=== PATIENT | female | born 1940 | race Caucasian/White ===

== ENCOUNTER 2023-07-30 17:49 | Observation (INO) | payer MEDICARE, SELFPAY ==
[2023-07-30] VITALS (7 sets, daily range): BP systolic 113–144; BP diastolic 55–73; PULSE 76–87; BMI 24.5
--- NOTE | 2023-07-30 14:09 | ED.GENMED ---
History of Present Illness
General
Chief Complaint: Dizziness
Source: patient
Exam Limitations: none
Time Seen by Provider: 07/30/23 14:05
Nursing documentation reviewed up to this point in time: agreed with
Travel History
Have you had any contact with someone who has COVID-19?: No
Do you have any symptoms of coronavirus? Fever > 100 degrees, chills, cough, shortness of breath, sore throat, loss of taste or smell, muscle aches, or headache?: No
History of Present Illness
History of Present Illness:
83-year-old female presents to the ER for evaluation. She reports she was sent by her neurologist Dr. Larry. She is followed by neurology for benign essential tremors. She however did not feel well this morning. About an hour after awakening
she felt that her balance was off and she felt lightheaded , dizzy and felt a dry mouth. She denies the sensation that the room is spinning. She reported that she does not feel that this is vertigo. Denies any recent trauma. She denies any
headache nausea vomiting. She is not on blood thinners. No prior history of stroke. Yesterday she felt very tired but now she feels worse today. She reports she does not feel herself.
I spoke to Dr. Larry who did evaluate patient today and was concerned for posterior circulation stroke I did send patient to the ER for evaluation. He reports patient's balance was slightly off. Patient however arrives awake alert and does feel
improved than she did this morning though not quite herself.
Past History
Past History
ED Past Medical History: Other (Osteoarthritis, psoriasis, benign essential tremor)
ED Past Surgical History: Appendectomy and Gynecological (MARY/BSO)
Social History
Personal:
Review of Systems
Review of Systems
Allergies reviewed?: Yes
All Other Systems: ROS reviewed and negative except as documented in HPI and ROS
Constitutional: Reports no symptoms
Respiratory: Reports no symptoms
Cardiac: Reports no symptoms
ABD/GI: Reports no symptoms
Skin: Reports no symptoms
Neurological: Reports dizzy; Denies headache, weakness or numbness
Psychiatric: Reports no symptoms
Phy Exam
General Physical Exam
General Presentation: no apparent distress
General age: appears stated age
General Skin: warm and dry
General Habitus: normal
General Mental: alert
General Hydration: dry mucous membranes
Cardiovascular Exam
Cardiovascular Exam: regular rate/rhythm, no murmur and normal peripheral pulses
Pulmonary Exam
Pulmonary Exam: lungs clear
Gastrointestinal Exam
Gastrointestinal Exam: normal bowel sounds and soft
Neurological Exam
Neurological Exam: alert, oriented x3, no motor deficits and no sensory deficits
Meredith Coma Scale
Eye Opening: Spontaneous
Verbal Response: Oriented
Motor Response: Obeys Commands
GCS Total Score: 15
Cerebellar
Cerebellar Function: normal finger to nose
Musculoskeletal Exam
Musculoskeletal Exam: full ROM
Skin Exam
Skin Exam: normal color and warm/dry
Psychiatric Exam
Psychiatric Exam: normal mood/affect
Course
Orders/Labs/Results
Orders:
Orders
07/30/23 11:34
EKG [Electrocardiogram (*1)] Urgent
Reason for Study: Vertigo / Dizzy
07/30/23 11:35
EKG- Treatment ONCE
07/30/23 14:18
IV Insert/Care/Rem.- Treatment PRN
0.9% Sodium Chloride 1000 ml [Nss] 1,000 ml IV BOLUS
07/30/23 14:19
Electrocardiogram (*1) Stat
Reason for Study: Other
Other Reason for Exam: chest pain
Cardiac Monitoring- Treatment ONCE
EKG- Treatment ONCE
Orthostatic VS- Treatment ONCE
07/30/23 14:23
Complete Blood Count/With Diff Urgent
Comprehensive Metabolic Panel Urgent
07/30/23 14:31
CT Head W/o Iv Contrast Urgent
Comment:
Reason For Exam: balance issues
Abnormal Lab Results
07/30/23
14:23
MCHC 32.7 L g/dL
(33.0-37.0)
Absolute Lymphs (auto) 1.1 L 10^3/uL
(1.2-3.4)
Lymphocytes % 15.7 L %
(20.5-51.1)
Sodium 134 L mmol/L
(135-145)
BUN 25 H mg/dl
(7-17)
Total Protein 6.1 L g/dl
(6.3-8.2)
07/30/23 14:23
07/30/23 14:23
Vital Signs
Initial and Last Documented VS:
Initial Vital Signs
Temp Pulse Resp BP Pulse Ox
97.7 F 86 18 141/69 98
07/30/23 11:32 07/30/23 11:32 07/30/23 11:32 07/30/23 11:32 07/30/23 11:32
Last Documented Vital Signs
Temp Pulse Resp BP Pulse Ox
97.7 F 72 10 113/55 98
07/30/23 11:32 07/30/23 14:40 07/30/23 14:40 07/30/23 14:40 07/30/23 11:32
MDM/Problems Addressed
Differential Diagnosis Includes:
Not limited to stroke, dehydration, electrolyte
MDM/Problems Addressed:
Patient is an 83-year-old female with benign essential tremors who woke up this morning and felt off. She describes feeling that her gait and balance was off she felt dizzy. She also was very thirsty. She was seen by her neurologist Dr. Archibald
Kendy(this was a regular schedule appointment for her essential tremors) and he recommended patient come to the ER. I did speak with him over the phone, he was concerned about possible posterior circulation stroke. Patient was just amatory with a
steady gait here in the ER no headache no blood thinners. CT head and negative. Patient with normal sodium potassium, normal kidney function no recent illness normal white count afebrile stable hemoglobin.
Patient is mildly dehydrated with a BUN of 25 given fluids. will admit for stroke work up
*Radiology
Radiology exam reviewed: radiology read reviewed
*Pulse Oximetry
Patient hypoxic: no
*EKG
Interpreted by ED Provider?: Yes
Comparison EKG: no changes
Heart Rate: 74
Rate: normal
Rhythm: sinus
QRS Pattern: right bundle branch block
*Critical Care Note
Total Time (30-74mins, 75-104mins- exclusive of procedures): Not Applicable
Patient Management
Discussion with other providers: Drug Enforcement Agent (neuro DR Larry )
ED Attending Note
-
Portions of this chart may have been created with voice recognition software.� Occasional wrong word or��sound alike� substitutions may have occurred due to the inherent limitations of voice recognition software.
Discharge Plan
Departure
Patient Disposition: Admit
Date of Disposition: 07/30/23
Time of Disposition: 16:41
Admit to doctor: hospitalist
Presentation/result/management discussed w/ accepting MD/DO: Hospitalist
Patient with high blood pressure during this ER visit?: Yes
Condition: Fair
Covid-19: Not Applicable
Discharge Problem:
Dizziness, Dehydration
Prescriptions:
No Action
alprazolam 0.5 MG tablet
1 mg PO Q12H
estradiol 1 MG tablet
1 mg PO DAILY
Gabapentin
600 mg PO HS
mupirocin 1 APPLIC ointment
1 applic intranasal BID Qty: 1 0RF
Patient Comments:
started 01/10/19 as ordered last dose 01/13/19 0710
sennosides [senna] 1 TABLET tablet
2 tab PO BID 0RF
acetaminophen 325 MG tablet
650 mg PO QID 0RF
aspirin 325 MG tablet,delayed release (DR/EC)
325 mg PO DAILY 0RF
docusate sodium 100 MG capsule
100 mg PO BID 0RF
oxycodone 5 MG tablet
5 mg PO Q4HPRN PRN (Reason: mild pain) 0RF
oxycodone 10 MG tablet
10 mg PO Q4HPRN PRN (Reason: moderate pain) 0RF
celecoxib 200 MG capsule
200 mg PO BID
valacyclovir [Valtrex] 1,000 MG tablet
1,000 mg PO TID Qty: 20 0RF
prednisone 50 MG tablet
50 mg PO DAILY Qty: 7 0RF
Referrals:
Marvin Mays, DO [Family Provider] -
Interventions
Interventions:
*Risk Screen - Suicide Last Done: 07/30/23 11:32
*General Assessment Last Done: 07/30/23 14:11
*Neglect/Abuse Screening Last Done: 07/30/23 11:32
ED- Fall Risk Assessment Last Done: 07/30/23 14:11
*ED COVID-19 Vaccine History Last Done: 07/30/23 11:32
ED- Neurological Assessment Last Done: 07/30/23 14:11
ED- Cardiac Assessment Last Done: 07/30/23 14:11
ED Swallowing Screen Last Done: 07/30/23 14:11
Discharge Date and Time
Print Language: VIETNAMESE
[2023-07-30] MEDS: NSS 1000 IV (14:22)
[2023-07-30 14:41] LABS: % Basophils 0.6 % (0-2); % Eosinophils 1.5 % (0-6); % Immature Granulocytes 0.1 % (0-0.5); % Lymphocytes 15.7 % (20.5-51.1); % Monocytes 8.5 % (1.7-9.3); % Neutrophils 73.6 % (42.2-75.2); Absolute Eosinophils 0.1 10^3/uL (0-0.7); Absolute Lymphocytes 1.1 10^3/uL (1.2-3.4); Absolute Monocytes 0.6 10^3/uL (0.1-0.6); Hematocrit 38.5 % (37.0-47.0); Hemoglobin 12.6 g/dL (12.0-16.0); Mean Corp Hgb Conc. 32.7 g/dL (33.0-37.0); Mean Corpuscular Hgb 29.8 pg (27.0-31.0); Mean Platelet Volume 10.1 fL (7.4-10.4); Nucleated Red Blood Cells % 0 %; Platelet Count 206 10^3/uL (130-400); Red Blood Cell Count 4.23 10^6/uL (4.20-5.40); Red Cell Dist. Width 12.5 % (11.5-14.5); White Blood Cell Count 6.8 10^3/uL (4.8-10.8)
[2023-07-30 14:50] LABS: ALT (SGPT) 16 U/L (0-35); AST (SGOT) 24 U/L (14-36); Albumin 4.1 g/dl (3.5-5.0); Alkaline Phosphatase 81 U/L (38-126); Blood Urea Nitrogen 25 mg/dl (7-17); Calcium 9.4 mg/dl (8.4-10.2); Carbon Dioxide 28 mmol/L (22-30); Chloride 103 mmol/L (98-107); Glucose 82 mg/dl (70-99); Potassium 4.4 mmol/L (3.5-5.1); Sodium 134 mmol/L (135-145); Total Bilirubin 0.3 mg/dl (0.2-1.3); Total Protein 6.1 g/dl (6.3-8.2); eGFR > 60.00
--- NOTE | 2023-07-30 17:06 | HPS.HSE ---
Family Physician
-
Family Physician: Marvin Mays
Chief Complaint
-
Problem with balance
History of Present Illness
83-year-old female with past medical history of hyperlipidemia, neuropathy, left TKR, anxiety, essential tremor was sent in from neurology office after patient had new onset of dizziness and balance problem in the morning. Patient denies of having
previous history of TIA/CVA/vertigo. In the morning patient woke up and balance was off. Denies of having any associated focal arm or leg weakness/sensation change/facial droop. Patient does feel her voice is different than normal. Patient
follows up with Dr. Gamble/neurology for essential tremor for few years now.
Denies of any other cardiopulmonary/GI/ complaints.
Medical History
Past Medical History
Past Medical History: Reports Other
Additional Past Medical History:
hyperlipidemia, neuropathy, left TKR, anxiety, essential tremor
Past Surgical History: Reports Other
Social History
Tobacco: Non-smoker
Alcohol: Occasional
Drug: None
Personal:
Living: With Family
Family History
Family History: Not pertinent
Allergies / Home Medications
Allergies reflects when Allergies were last updated in [facility].
Home Medications with original date entered in [facility]
Allergy/Medication List:
Allergies
Allergy/AdvReac Type Severity Reaction Status Date / Time
Penicillins Allergy rash/burnin Verified 07/30/23 11:31
g
Home Medications
alprazolam 0.25 mg tablet (Xanax) 0.25 mg PO BIDPRN PRN anxiety 07/30/23
atorvastatin 20 mg tablet (Lipitor) 20 mg PO DAILY 07/30/23
bimatoprost 0.01 % eye drops (Lumigan) 1 drp BOTH EYES HS 07/30/23
cyclosporine 0.05 % eye drops in a dropperette (Restasis) 1 drp BOTH EYES Q12H 07/30/23
estradiol 0.01% (0.1 mg/gram) vaginal cream (Estrace) 1 appful vaginal Q48H 07/30/23
gabapentin 300 mg capsule 600 mg PO NOON 07/30/23
gabapentin 300 mg capsule 900 mg PO BID@0800,2000 07/30/23
Review of Systems
-
A 12 point ROS was completed and negative except as noted: Yes
Physical Exam
Vital Signs
Vital Signs
Temp Pulse Resp BP Pulse Ox
97.7 F 74 14 116/57 98
07/30/23 11:32 07/30/23 16:30 07/30/23 16:30 07/30/23 14:50 07/30/23 11:32
Physical Exam
General: No Apparent Distress
HEENT: Atraumatic; No Oxygen
Respiratory: Clear
Cardiac: S1/S2 and Regular Rhythm; No Murmur or Rub
GI: Soft, Non Tender, Non Distended and Normal Bowel Sounds
Rectal: Deferred by Provider
Musculoskeletal: No Clubbing, No Cyanosis and No Edema
Skin: No Rash
Neuro: Awake, Alert, Oriented and Nonfocal/grossly intact
Laboratory Results
-
07/30/23 14:23
07/30/23 14:23
Laboratory Results
Total Bilirubin 0.3 mg/dl (0.2-1.3) 07/30/23 14:23
AST 24 U/L (14-36) 07/30/23 14:23
ALT 16 U/L (0-35) 07/30/23 14:23
Alkaline Phosphatase 81 U/L (38-126) 07/30/23 14:23
Data Reviewed
-
CT Scan: Image Personally Visualized and interpreted, Report Reviewed by me, Discussed with Patient and Discussed with Family
Lab Data: Labs Reviewed by me, Discussed with Patient and Discussed with Family
Impression/Plan
-
1. Acute ataxia
r/o CVA
-Acute onset symptoms of balance problem. No associated diplopia/nystagmus/focal neurological deficit
-Denies history of vertigo
-Sent from neurology office for further evaluation for possible posterior circulation stroke
-CT head without any acute abnormality
-MRI brain without contrast and MRA neck ordered
-PT OT/speech therapy evaluation ordered
-Admit to telemetry floor under observation
-Check lipid profile/A1c
-Started on aspirin 81 mg daily. Continue atorvastatin 20 mg daily
-Will involve neurology if true CVA.
2. Neuropathy
-Continue home dose of gabapentin
3. Hyperlipidemia
-Check lipid profile, continue Lipitor 20 mg daily
4. Anxiety
-Continue Xanax as needed
-Providing melatonin/Benadryl for sleeping aid
DVT prophylaxis -SCD
Full code
Total time spent : 76 mins
I personally saw and examined the patient.
I have reviewed all diagnostic interpretations and treatment plans as written.
Time includes patient management by me, time spent at the patients bedside, time to review lab and imaging results, discussing patient care, documentation in the medical record, and time spent with the family or caregiver and discussing care plan
with RN/Consultants.
[2023-07-30] MEDS: LOW STRENGTH ASPIRIN 81 MG PO (19:55)
[2023-07-30] MEDS: XANAX 0.25 MG PO (21:09)
[2023-07-30] MEDS: RESTASIS 0.05% OPHTHALMIC EMULSION 1 DROPS BOTH EYES (21:15)
[2023-07-30] MEDS: NEURONTIN 300 MG PO (21:21)
[2023-07-31 03:28] VITALS: BP 102/52
--- NOTE | 2023-07-31 04:27 | W.PN.UPDATE ---
Update Note
Progress Note Update
Recommended by the pharmacist to adjust the current dose of gabapentin of 900mg po bid and 600mg po noon to 300mg po tid. Current CrCl = 38 and Max recommended dose is 900mg/day. Dose changed as recommended.
[2023-07-31 05:46] LABS: Hematocrit 35.2 % (37.0-47.0); Hemoglobin 11.9 g/dL (12.0-16.0); Mean Corp Hgb Conc. 33.8 g/dL (33.0-37.0); Mean Corpuscular Hgb 29.8 pg (27.0-31.0); Mean Corpuscular Volume 88.2 fL (81.0-99.0); Platelet Count 187 10^3/uL (130-400); Red Blood Cell Count 3.99 10^6/uL (4.20-5.40); Red Cell Dist. Width 12.4 % (11.5-14.5)
[2023-07-31 06:14] LABS: Blood Urea Nitrogen 26 mg/dl (7-17); Carbon Dioxide 26 mmol/L (22-30); Chloride 107 mmol/L (98-107); Estimated Creatinine Clearance 38 ml/min; Glucose 91 mg/dl (70-99); HDL Cholesterol 82 mg/dl; LDL Cholesterol, Calculated 55 mg/dl; Potassium 4.2 mmol/L (3.5-5.1); Sodium 137 mmol/L (135-145); Total Cholesterol 152 mg/dl (50-199); Triglyceride 78 mg/dl (10-149); Very Low Density Lipoprotein 15 mg/dl (0-30); eGFR > 60.00
[2023-07-31 07:30] VITALS: BP 150/72
[2023-07-31 08:42] LABS: Glycohemoglobin (HgbA1c) 5.3 % (4.0-5.6)
[2023-07-31 09:00] VITALS: BP 142/71; PULSE 85; O2SAT 100
--- NOTE | 2023-07-31 09:09 | PTOTSP ---
ST Acute Care Evaluation
Pt presents with oropharyngeal parameters that are safe for PO intake of all solid and liquid consistencies. No overt s/s of penetration or aspiration observed at bedside. Pt denies any recent difficulties with attention, memory, comprehension,
verbal expression, or speech. Further cognitive linguistic assessment is not warranted at this time.
No skilled BLACK PULLER services deemed necessary at this time. BLACK PULLER to sign off. Please re-consult if needed.
[2023-07-31] MEDS: LOW STRENGTH ASPIRIN 81 MG PO (09:32)
[2023-07-31] MEDS: LIPITOR 20 MG PO (09:32)
[2023-07-31] MEDS: NEURONTIN 300 MG PO ×2 (09:33→12:31)
[2023-07-31] MEDS: RESTASIS 0.05% OPHTHALMIC EMULSION BOTH EYES ×2 (09:34→09:37)
[2023-07-31 10:06] VITALS: BP 142/71; PULSE 83; O2SAT 99
[2023-07-31 11:00] VITALS: BP 150/76
--- NOTE | 2023-07-31 13:56 | W.PN.HOSP.TC ---
Today's Communication/Plan
-
d/c home
Assessment / Plan
Assessment / Plan
1. Acute ataxia - ruled out CVA
-Acute onset symptoms of balance problem. No associated diplopia/nystagmus/focal neurological deficit
-Denies history of vertigo
-Sent from neurology office for further evaluation for possible posterior circulation stroke
-CT head without any acute abnormality
-MRI brain without contrast and MRA neck negative.
-PT OT clear,
-Admit to telemetry floor under observation
-Hbga1c 5.3. LDL 55 TC 152 HDL 82
-Possible TIA episode, continue f/u with neurology outpt basis.
2. Neuropathy
-Continue home dose of gabapentin
3. Hyperlipidemia
-Check lipid profile, continue Lipitor 20 mg daily
4. Anxiety
-Continue Xanax as needed
-Providing melatonin/Benadryl for sleeping aid
DVT prophylaxis -SCD
Full code
More than 30 minutes spent in discharge including
Final examination of the patient
Summarizing hospital stay
Instructions for continuing care to all relevant caregivers
Preparation of discharge records, prescriptions, and referral forms
Total time spent (in minutes): 35 mins
Anticipated Discharge: Today
Subjective/Interval History
-
Date of Service: July 31, 2023
no new problems
Objective Data
-
Labs:
Laboratory Results
07/31/23
05:11
WBC 6.0
Hgb 11.9 L
Hct 35.2 L
Plt Count 187
Sodium 137
Potassium 4.2
Chloride 107
Carbon Dioxide 26
BUN 26 H
Creatinine 0.8
Glucose 91
Calcium 9.0
Vital Signs:
Vital Signs
Temp Pulse Resp BP Pulse Ox
97.8 F 80 18 150/76 95
07/31/23 11:00 07/31/23 11:00 07/31/23 11:00 07/31/23 11:00 07/31/23 11:00
I&O
07/30/23 07/31/23 08/01/23
06:59 06:59 06:59
Intake Total 120 / 120
Balance 120 / 120
Review of Systems
-
Respiratory: Reports No Symptoms
Cardiac: Reports No Symptoms
Abdomen/GI: Reports No Symptoms
Physical Exam
-
General: No Apparent Distress and Comfortable
HEENT: Negative Oxygen
Respiratory: Clear to Auscultation
Cardiac: Regular Rhythm and S1/S2; Negative Murmur or Rub
GI: Soft, Nontender, Nondistended and Normal Bowel Sounds
Musculoskeletal: No Edema
Neuro: Awake, Alert, Oriented, No Motor Deficits and Nonfocal/Grossly Intact
Psych: Calm
--- NOTE | 2023-07-31 14:49 | CM ---
Alert awake oriented patient who lives with her Harshal in a 2 story home with 3 step to enter and 12 steps to bed room . She is independent in driving and all activities of daily living.Offered VN she declined. No adaptive devices.
will drive her home.
No SNF/VN hx
Pharmacy [facility]
PCP Dr Mays
PLAN Home no needs
--- NOTE | 2023-08-01 07:30 | W.DCSUMMARY ---
Discharge Summary
Discharge Data
Date of Admission: 07/30/23
Date of Discharge: 07/31/23
-
Pending Results: No
Hospital Course
Discharging Physician : Dr Jorge Verdin
Disposition : To home
Primary care physician : Dr Marvin Mays
Principal Discharge diagnosis :
Acute ataxia
Chronic Discharge diagnosis :
Hyperlipidemia
Neuropathy
Anxiety
Hospital Course :
Patient is a 83-year-old female with above-mentioned past medical history came to ER with new onset of dizziness and balance problem in the morning. Patient coincidently had a follow-up appointment with primary neurologist for long-term essential
tremors and neurologist had concern of patient having a new posterior cerebral circulation stroke and was sent to ER for further evaluation. CT head did not show any acute abnormality. A follow-up MRI brain and MRA neck was done which did not show
any acute abnormality either. Patient nondiabetic and lipid profile showing controlled hyperlipidemia. Patient was discharged home with continue all of home medication. Unable to completely differentiate if it was a TIA episode versus mild
vertigo. Patient will benefit with continual follow-up with neurology if have further similar episodes.
Important imaging findings :
None
Procedure findings :
None
Discharge Plan
-
Patient Disposition: Home (Routine Discharge)
Discharge Diagnosis/Procedures: Balance problems
Condition: Fair
Diet: Low Cholesterol and Low Sodium
Activity: As tolerated
Driving Restrictions: No driving
Bathing Restrictions: OK to Shower
Referrals:
Marvin Mays, DO [Family Provider] - in one week
Prescriptions:
Continued
atorvastatin [Lipitor] 20 mg Tablet
20 mg PO DAILY
alprazolam [Xanax] 0.25 mg Tablet
0.25 mg PO BIDPRN PRN (Reason: anxiety)
gabapentin 300 mg Capsule
900 mg PO BID@0800,2000
gabapentin 300 mg Capsule
600 mg PO NOON
estradiol [Estrace] 0.01 % (0.1 mg/gram) Cream
1 appful VAGINAL Q48H
cyclosporine [Restasis] 0.05 % Dropperette
1 drp BOTH EYES Q12H
Lumigan 0.01 % Drops
1 drp BOTH EYES HS
Discharge Orders:
Discharge Patient (As Directed); Ordered 07/31/23
Ordered By: Jorge Verdin
Discharge Date and Time
Discharge Date/Time: 07/31/23 14:48
Print Language: ALGERIAN
== END 2023-07-31 14:48 | disposition home or self-care (01) ==
LOC: 3 WEST ACU 17:49
PROVIDERS: Nurse Practitioner; ADMITTING PHYSICIAN Hospitalist; EMERGENCY PHYSICIAN Emergency Medicine; FAMILY PHYSICIAN Family Medicine
DX: R27.0 Ataxia, unspecified (principal); E86.0 Dehydration; E78.5 Hyperlipidemia, unspecified; G62.9 Polyneuropathy, unspecified; F41.9 Anxiety disorder, unspecified; G25.0 Essential tremor; M19.90 Unspecified osteoarthritis, unspecified site; I45.10 Unspecified right bundle-branch block; Z79.899 Other long term (current) drug therapy; Z96.652 Presence of left artificial knee joint
CPT/HCPCS: 70450; 70548; 70551; 80048; 80053; 80061; 83036; 85025; 85027; 92610; 93005; 96360; 97163; 97165; 99285; A9585; G0378

== ENCOUNTER → 2024-11-19 09:28 | Outpatient (REF) | payer MEDICARE, SELFPAY | LOC: WDC 09:28 | PROVIDERS: ATTENDING PHYSICIAN Nurse Practitioner Adult Health; FAMILY PHYSICIAN Family Medicine | DX: N64.4 Mastodynia (principal) | CPT/HCPCS: 76642; 77062; 77066 ==

== ENCOUNTER → 2024-11-25 08:16 | Outpatient (REF) | payer MEDICARE, SELFPAY | LOC: RAD 08:16 | PROVIDERS: ATTENDING PHYSICIAN Student in an Organized Health Care Education/Training Program; FAMILY PHYSICIAN Family Medicine | DX: R22.42 Localized swelling, mass and lump, left lower limb (principal) | CPT/HCPCS: 76882 ==

== ENCOUNTER 2025-01-08 03:04 | Observation (INO) | payer MEDICARE, SELFPAY ==
[2025-01-07 22:07] VITALS: BP 150/81
[2025-01-07 22:47] LABS: Hematocrit 40.1 % (37.0-47.0); Hemoglobin 13.7 g/dL (12.0-16.0); Mean Corp Hgb Conc. 34.2 g/dL (33.0-37.0); Mean Corpuscular Volume 84.4 fL (81.0-99.0); Nucleated Red Blood Cells % 0 %; Platelet Count 246 10^3/uL (130-400); Red Cell Dist. Width 12.0 % (11.5-14.5)
[2025-01-07 23:06] LABS: ALT (SGPT) 13 U/L (0-35); AST (SGOT) 22 U/L (14-36); Albumin 4.5 g/dl (3.5-5.0); Alkaline Phosphatase 81 U/L (38-126); Blood Urea Nitrogen 26 mg/dl (7-17); Calcium 10.0 mg/dl (8.4-10.2); Carbon Dioxide 24 mmol/L (22-30); Chloride 107 mmol/L (98-107); Glucose 102 mg/dl (70-99); Potassium 4.0 mmol/L (3.5-5.1); Sodium 139 mmol/L (135-145); Total Protein 6.6 g/dl (6.3-8.2); eGFR > 60.00
[2025-01-07 23:57] VITALS: BP 138/95
[2025-01-08] VITALS (10 sets, daily range): BP systolic 114–153; BP diastolic 56–88; BMI 23.2; BMI 23.3
--- NOTE | 2025-01-08 00:45 | ED.GENMED ---
History of Present Illness
General
Chief Complaint: Gait Dysfunction
Source: patient and spouse
Exam Limitations: clinical condition
Time Seen by Provider: 01/07/25 23:33
Nursing documentation reviewed up to this point in time: agreed with
History of Present Illness
History of Present Illness:
84-year-old female history of a resting tremor no history of seizures nondrinker non-smoker takes gabapentin and a statin woke up today plan was to go on a trip with her spouse who is accompanying her developed some uncontrollable upper extremity
movements, she never had before, she is unable to control the movements, no headache, she is hard of hearing, spouse states she does not appear to be confused, no fevers no trauma, nondrinker non-smoker
Past History
Past History
ED Past Medical History: Other (Osteoarthritis, psoriasis, benign essential tremor)
ED Past Surgical History: Appendectomy and Gynecological (MARY/BSO)
Social History
Personal:
Phy Exam
Physical Exam
Physical Exam:
Physical Exam
General: Hard of hearing elderly female intermittent only moving her arms uncontrollably
Neck: No jaundice no tongue
Heart: s1/s2 regular rate and rhythm, no murmur. equal radial pulses.
Lungs: no acute respiratory distress. clear bilaterally
Abdomen: Nontender
Neuro: alert and oriented. no focal neurological deficits
Skin: no rash
Psychiatric: well kept. interactive and cooperative
Extremities: no edema.
Course
Orders/Labs/Results
Orders:
Orders
01/07/25 22:27
CBC/With Diff [Complete Blood Count/With Diff] Urgent
CMP [Comprehensive Metabolic Panel] Urgent
01/08/25 00:[address] [CT Head W/o Iv Contrast] Urgent
Comment:
Reason For Exam: tremors
01/08/25 00:39
diazePAM [Valium Injection] 5 mg IV NOW STA
01/08/25 02:00
Straight cath- Treatment ONCE
Urinalysis Reflex To Culture Urgent
Date Specimen was Collected: 01/08/25
Time Specimen was Collected: 02:18
01/08/25 02:15
Add On- LAB Stat
Tests Added?: ammonia level
01/08/25 02:18
Ammonia Urgent
Comment: CANNOT BE ADDED
01/08/25 02:21
NEUROLOGY CONSULT Routine
Consulting Provider: Radha Whitley
Was physician already notified: Yes
Abnormal Lab Results
01/07/25
22:27
Absolute Monos (auto) 0.8 H 10^3/uL
(0.1-0.6)
Monocytes % 10.2 H %
(1.7-9.3)
BUN 26 H mg/dl
(7-17)
Glucose 102 H mg/dl
(70-99)
01/07/25 22:27
01/07/25 22:27
Vital Signs
Initial and Last Documented VS:
Initial Vital Signs
Temp Pulse Resp BP Pulse Ox
98.4 F 96 22 150/81 98
01/07/25 22:07 01/07/25 22:07 01/07/25 22:07 01/07/25 22:07 01/07/25 22:07
Last Documented Vital Signs
Temp Pulse Resp BP Pulse Ox
98.4 F 95 18 120/60 98
01/07/25 22:07 01/08/25 01:03 01/08/25 01:03 01/08/25 01:03 01/08/25 01:22
MDM/Problems Addressed
Differential Diagnosis Includes:
Seizure stroke psychosomatic medication effect
MDM/Problems Addressed:
Uncontrollable upper extremity movements
Chronic conditions affecting care:
Resting tremor
Acute Exacerbation and/or Progression of Chronic Illness:
Tremor
*Pulse Oximetry
SaO2: 99
Oxygen Mode of Delivery: Room air
Patient hypoxic: no
*Critical Care Note
Total Time (30-74mins, 75-104mins- exclusive of procedures): 22
Update Note
Update Note:
1:15 AM only short burst of 3% seizure activity on cerebella, activities stopped after 5 mg of Valium will send for CT
Reviewed with neurology recommend checking ammonia level suspect it could be metabolic or toxic myoclonus
Patient does take gabapentin
ED Attending Note
-
Portions of this chart may have been created with voice recognition software.� Occasional wrong word or��sound alike� substitutions may have occurred due to the inherent limitations of voice recognition software.
Discharge Plan
Departure
Patient Disposition: Admit
Date of Disposition: 01/08/25
Time of Disposition: 02:22
Admit to: Telemetry
Presentation/result/management discussed w/ accepting MD/DO: Hospitalist
Patient with high blood pressure during this ER visit?: No
Condition: Fair
Discharge Problem:
TONIC MYOCLONUS
Prescriptions:
No Action
atorvastatin [Lipitor] 20 mg Tablet
20 mg PO DAILY
alprazolam [Xanax] 0.25 mg Tablet
0.25 mg PO BIDPRN PRN (Reason: anxiety)
gabapentin 300 mg Capsule
900 mg PO BID@0800,2000
gabapentin 300 mg Capsule
600 mg PO NOON
estradiol [Estrace] 0.01 % (0.1 mg/gram) Cream
1 appful VAGINAL Q48H
cyclosporine [Restasis] 0.05 % Dropperette
1 drp BOTH EYES Q12H
Lumigan 0.01 % Drops
1 drp BOTH EYES HS
Referrals:
Bindu Marie DO [Family Provider, Family Practice]
Interventions
Interventions:
*Risk Screen - Suicide Last Done: 01/07/25 22:07
*General Assessment Last Done: 01/07/25 22:07
*Neglect/Abuse Screening Last Done: 01/07/25 22:07
*ED- Fall Risk Assessment Last Done: 01/08/25 00:08
*ED COVID-19 Vaccine History Last Done: 01/08/25 00:08
ED- Neurological Assessment Last Done: 01/08/25 00:08
ED-Musculoskeletal Assessment Last Done: 01/08/25 00:08
ED Swallowing Screen Last Done: 01/08/25 00:23
Discharge Date and Time
Print Language: BULGARIAN
[2025-01-08] MEDS: VALIUM INJECTION 5 MG IV ×3 (00:51→18:42)
--- NOTE | 2025-01-08 02:12 | HPS.HSE ---
Family Physician
-
Family Physician: Bindu Marie
Chief Complaint
-
Movement disorder
History of Present Illness
This is a 84-year-old female with past medical history significant for essential tremor, neuropathy, hyperlipidemia who presents to the emergency department with sudden onset of uncontrolled jerky movements in her extremities.
According to spouse who was able to provide history they were planning on taking a ride this evening to [place]. There was no particular stressors. Patient then suddenly was unable to walk due to uncontrolled spastic movements of her
extremities. Patient states she is unable to control this movement. She has them in the upper and lower extremities. She also reports that is created difficulty with speaking says she has uncontrolled movements affecting her voice as well as to
some degree diaphragm and breathing. She appears to have become very anxious with this movement rather than having anxiety prior to these movements. She reports history of intermittent dizziness in the past but not recently. She has a history of
some urinary frequency but not particularly more intense recently. She has had no fevers or chills. She has no sick contacts. She takes gabapentin and 900 mg a.m., 600 mg in the noon and 900 mg p.m. There has been no recent changes in the dose
and she has been on this dose for several years. She denies any decrease fluid intake and spouse aware that her last meal was at around 6 PM although she had very little at that time. There has been no additional medications and she has not been
on any interacting medications. She has no history of seizures. She denies no history of strokes. She has no history of severe anxiety depression or other psychiatric illnesses. She denies any headaches. She denies any vision changes. She
denies slurred speech.
The Emergency Department patient was afebrile, blood pressure was 120/60 with a pulse of 95 and she was satting 90% on room air. CT of her head shows no acute interval changes. CBC was completely normal. Electrolytes were normal. BUN and
creatinine were in the normal range. Glucose was normal.
Medical History
Past Medical History
Past Medical History: Reports Other
Additional Past Medical History:
hyperlipidemia, neuropathy, left TKR, anxiety, essential tremor
Past Surgical History: Reports Other
Social History
Tobacco: Non-smoker
Alcohol: Occasional
Drug: None
Personal:
Living: With Family
Family History
Family History: Not pertinent
Allergies / Home Medications
Allergies reflects when Allergies were last updated in [facility].
Home Medications with original date entered in [facility]
Allergy/Medication List:
Allergies
Allergy/AdvReac Type Severity Reaction Status Date / Time
Penicillins Allergy rash/burnin Verified 07/30/23 11:31
g
Home Medications
alprazolam 0.25 mg tablet (Xanax) 0.25 mg PO BIDPRN PRN anxiety 07/30/23
atorvastatin 20 mg tablet (Lipitor) 20 mg PO DAILY 07/30/23
bimatoprost 0.01 % eye drops (Lumigan) 1 drp BOTH EYES HS 07/30/23
cyclosporine 0.05 % eye drops in a dropperette (Restasis) 1 drp BOTH EYES Q12H 07/30/23
estradiol 0.01% (0.1 mg/gram) vaginal cream (Estrace) 1 appful vaginal Q48H 07/30/23
gabapentin 300 mg capsule 600 mg PO NOON 07/30/23
gabapentin 300 mg capsule 900 mg PO BID@0800,2000 07/30/23
Review of Systems
-
A 12 point ROS was completed and negative except as noted: Yes
Neurological: Denies Headache or Numbness
Physical Exam
Vital Signs
Vital Signs
Temp Pulse Resp BP Pulse Ox
98.4 F 95 18 120/60 98
01/07/25 22:07 01/08/25 01:03 01/08/25 01:03 01/08/25 01:03 01/08/25 01:22
Physical Exam
General: No Apparent Distress
HEENT: Atraumatic; No Oxygen
Respiratory: Clear
Cardiac: S1/S2 and Regular Rhythm; No Murmur or Rub
GI: Soft, Non Tender, Non Distended and Normal Bowel Sounds
Rectal: Deferred by Provider
Musculoskeletal: No Clubbing, No Cyanosis and No Edema
Skin: No Rash
Neuro: Awake, Alert, Oriented, Nonfocal/grossly intact, Cranial Nerves Intact, No Sensory Deficits, Tremors and Other (Bilateral uncontrolled large amplitude jerking movements. She is able to sustain muscle contractions and does not have asterixis.
No fasciculations.); No Slurred Speech or Facial Droop
Hematologic/Lymphatic: No Lymphadenopathy
Psych: Agitated and Anxious
Laboratory Results
-
01/07/25 22:27
01/07/25 22:27
Laboratory Results
Total Bilirubin 0.6 mg/dl (0.2-1.3) 01/07/25 22:27
AST 22 U/L (14-36) 01/07/25 22:27
ALT 13 U/L (0-35) 01/07/25 22:27
Alkaline Phosphatase 81 U/L (38-126) 01/07/25 22:27
Data Reviewed
-
CT Scan: Report Reviewed by me
Lab Data: Labs Reviewed by me
Old Records: Reviewed
Impression/Plan
-
IMPRESSION:
84-year-old with history of essential tremors for which she has been on high dose gabapentin who presents to the emergency department with uncontrolled random movements of the upper and lower extremities with no focal neurological deficits and being
alert and oriented x 3. She had a cerebellar evaluation in the ED that was negative for seizures with 0 - 7% seizure likelihood over the recording period while she was symptomatic. She did calm down after a dose of vancomycin. Renal function
appears the same although her BUN is elevated elevated at 26 and creatinine is 0.8. She had normal LFTs. CT of the head shows no acute intracranial process.
PLAN:
Altered movement -suspect this is myoclonus either secondary to overdose of gabapentin (possibly inadvertently or in the setting of some dehydration) versus conversion syndrome. She however has no history of CVA psychiatric illness or conversion
type disorder so expect conversion is less likely. The generalized movement with normal mental status and then negative EEG in the ED makes any one-sided seizure unlikely. Unlikely this is secondary to an intracranial mass.
- admit to telemetry
- valium prn anxiety and severe uncontrolled movements
- hold gabapenting for now
- check u/a, ammonia
- s/p hydration in ED, continue gentle hydration overnight
- mr brain in am for any small tumor
- neurology consulted.
DVT PPX - lovenox sq
Code status - Full Code
[2025-01-08 03:00] LABS: Ammonia < 9 umol/L (9-30)
[2025-01-08 03:16] LABS: Urine Character Clear (Clear)
[2025-01-08 03:25] LABS: Urine Squamous Cell >30 /LPF (Few)
[2025-01-08 03:26] LABS: Urine Red Blood Cell None Seen /HPF (0-2)
--- NOTE | 2025-01-08 05:30 | PTCARENOTE ---
Patient arrived from ED via stretcher, pulled over to bed with assist of 3 person. Patient is unable to stand/pivot d/t severe tremors that patient presented with. Patient states they are slightly worse presenting than at home. Alert and oriented,
appears to be forgetful, no complaints at this time. Patient arrived with purwick, requests for it to stay on but then finds that she is unable to use. Purwick removed. Call patel in reach, will monitor.
--- NOTE | 2025-01-08 07:26 | CON.NEURO ---
Consultation
Order
Date of Consultation: 01/08/25
Requesting Provider: Froylan Vargas DO
Reason for Consult: Abnormal movements
Neurology Consultation Note.
HPI: This is an 84-year-old RH woman who presented to the [facility] on 07/07/2024 with abnormal movements.
According to the patient she developed an acute generalized 'shaking' and near fall on the day of presentation.
The patient reports that she woke up feeling unwell yesterday. Around 11 AM, as she was preparing to go on a trip to [place], she suddenly experienced a sensation of her head collapsing and her knees giving way. She describes feeling like
she was 'shaking all over,' which was different from her usual hand tremor that she developed in her 60s. The patient emphasizes that this shaking affected her legs and entire body, not just her hands.
The patient denies any associated symptoms such as headache, vision changes, numbness, or sensory disturbances. She also denies any recent medication changes or adjustments. The patient reports using adult diapers for urinary incontinence for the
past two years.
According to Mr. Chowdhury yesterday morning around 10 a.m., Seda experienced a sudden jolt, described as a seizure-like movement, which she had never experienced before. By mid-afternoon, these movements intensified, becoming almost continuous and
preventing her from walking, causing her to near fall to the ground. This severe shaking persisted for hours until emergency services were called at approximately 9:30 p.m.
The convulsions were described as tic-like jerking movements. Throughout the episode, the patient remained conscious with her eyes open and able to converse, though she appeared unsettled. There were no identified triggers such as illness or stress,
and the patient did not lose consciousness.
Additionally, the patient has been exhibiting forgetfulness, misplacing objects, and missing dates, though no significant difficulties with word retrieval or naming were reported.
The patient takes gabapentin for her essential tremor and manages her medications independently.
ER VS: 150/81, 96, afebrile
Labs: Glucose�102, normal Cr, ammonia, sodium, WBCs, LFTs
CT head wo contrast�mild diffuse atrophy.
Cerebell done in the ER showed no epileptiform abnormalities.
MAR: Diazepam 5 mg given at 00:51 and 02:54 on 01/08/25.
PDMP:Lorazepam 0.5 Mg 2 tablets filled in on 09/22/2024
PMH: ET, DLP, polyneuropathy, UI, GLORIA, OA
PSH: Left TKR, Left eyelid, biopsy
SH: , former secretarial work; nonsmoker; no history of excessive alcohol use use; independent in ADLs
FH: - Father: History of tremor
- Mother: Developed dementia around age 78, son�tremor
All:PNC
ROS: General: Positive for fatigue.
HEENT: Negative for vision changes, headache.
Gastrointestinal: Negative for diarrhea, constipation.
Genitourinary: Positive for urinary incontinence.
Musculoskeletal: Positive for generalized shaking, tremor in hands and legs.
Neurological: Positive for near-collapse episode, negative for numbness in feet.
General: Well developed. In no acute distress. Looks younger than chronological age (thus cosmetic procedures)
Cardio: Regular rate and rhythm without murmur. Extremities are without cyanosis or edema.
Neuro:
Mental Status: Alert, oriented to name, location, date (read from nursing board), date of . Does not know her age follows simple requests consistently. No hemineglect. Impaired comprehension. Nonfluent.
Cranial Nerves: Pupils are equally round and reactive to light. EOMs full. Visual moreno full to confrontation. No ptosis. No nystagmus. Face symmetric. Impaired hearing AU. The palate elevated well. SCMs and traps 5/5. Tongue midline.
No dysarthria.
Motor: Normal bulk and tone. No pronator or arm drift. Strength 5/5 throughout. No clonus.
Reflexes: Negative grasp bilaterally, negative Vasiliy's. 1+ upper extremities, 0 in lower extremities
Sensory: Normal vibration at the ankles (low reliability exam)
Coordination: Symmetric action hand tremor. No dysmetria. No myoclonus
Gait: deferred
Assessment and Plan:
I. 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 Transient ambulatory dysfunction.
II. Encephalopathy, likely toxic.
III. Essential tremor
IV. Family history of dementia
-Fall precaution
-Medication administration supervision
-Please obtain brain MRI without gadolinium
-PT
-Please follow-up TFTs, vitamin B12, urine tox
-Please obtain medical records from [facility]
I personally reviewed all radiology and labs along with past medical records pertinent to current medical problems. Total time spent in patient care is 55 minutes.
Thank you for allowing us to participate in the care of this patient. We will continue to follow. Please do not hesitate to contact us with any questions or concerns.
Subjective/Objective
Subjective Data
Date of Service: January 08, 2025
Objective Data
Vital Signs
Temp Pulse Resp BP Pulse Ox
36.9 C 84 18 152/78 99
01/08/25 05:43 01/08/25 05:43 01/08/25 05:43 01/08/25 05:43 01/08/25 05:45
Sodium 139 mmol/L (135-145) 01/07/25 22:27
Potassium 4.0 mmol/L (3.5-5.1) 01/07/25 22:27
BUN 26 mg/dl (7-17) H 01/07/25 22:27
Glucose 102 mg/dl (70-99) H 01/07/25 22:27
Calcium 10.0 mg/dl (8.4-10.2) 01/07/25 22:27
Patient Allergies
Penicillins Allergy (Verified 01/07/25 22:07)
rash/burning
Medications
-
Active Medications
Generic Name Dose Route Start Last Admin
Trade Name Freq PRN Reason Stop Dose Admin
Acetaminophen 650 mg 01/08/25 05:34
Acetaminophen 325 Mg Tablet PO 02/05/25 05:33
Q4HPRN PRN
mild pain/PEDERSON/temp> 100.4F
Atorvastatin Calcium 20 mg 01/08/25 08:00
Atorvastatin (Lipitor) 20 Mg Tablet PO 02/05/25 07:59
DAILY SHIRLEY
Bisacodyl 10 mg 01/08/25 05:34
Bisacodyl 10 Mg Rectal Suppository RECTAL 02/05/25 05:33
[id number] PRN
constipation
Cyclosporine 1 drops 01/08/25 08:00
Cyclosporine 0.05% (Ophthalmic Emulsion) 10 Drop Droperette BOTH EYES 02/05/25 07:59
Q12 SHIRLEY
Diazepam 5 mg 01/08/25 05:34
Diazepam 10 Mg/2 Ml Inj IV 02/05/25 05:33
Q6HPRN PRN
agitation
Enoxaparin Sodium 40 mg 01/08/25 18:00
Enoxaparin Sodium 40 Mg/0.4 Ml Syringe SC 02/05/25 17:59
QPM SHIRLEY
Sodium Chloride 1,000 mls @ 75 mls/hr 01/08/25 05:34
Nss IV 01/08/25 18:53
[id number] SHIRLEY
Latanoprost 1 drop 01/08/25 22:00
Latanoprost 0.005% (Ophthalmic Solution) 2.5 Ml Bottle BOTH EYES 02/05/25 21:59
HS SHIRLEY
Polyethylene Glycol 17 grams 01/08/25 05:34
Polyethylene Glycol Powder 17 Grams Packet PO 02/05/25 05:33
DAILYPRN PRN
constipation
Senna/Docusate Sodium 1 tablet 01/08/25 05:34
Docusate W/Senna (Allyssa-Colace) Tablet PO 02/05/25 05:33
BIDPRN PRN
constipation
Sodium Chloride 0 flush 01/08/25 06:00
Sodium Chloride 0.9% (Flush) Syringe IV 02/05/25 05:59
PER PROTOCOL SHIRLEY
Home Medications
�Medication �Instructions �Recorded
alprazolam 0.25 mg tablet (Xanax) 0.25 mg PO BIDPRN PRN anxiety 07/30/23
atorvastatin 20 mg tablet (Lipitor) 20 mg PO DAILY High Cholesterol 07/30/23
bimatoprost 0.01 % eye drops 1 drp BOTH EYES HS Eye Condition 07/30/23
(Lumigan)
cyclosporine 0.05 % eye drops in a 1 drp BOTH EYES Q12H Eye Condition 07/30/23
dropperette (Restasis)
estradiol 0.01% (0.1 mg/gram) 1 appful vaginal Q48H Hormonal 07/30/23
vaginal cream (Estrace) Agent
gabapentin 300 mg capsule 600 mg PO NOON Pain 07/30/23
gabapentin 300 mg capsule 900 mg PO BID@0800,2000 Pain 07/30/23
Vital Signs and Labs
-
Vital Signs and Labs:
Vital Signs
Temp Pulse Resp BP Pulse Ox
36.8 C 81 16 131/65 96
01/08/25 07:30 01/08/25 07:30 01/08/25 07:30 01/08/25 07:30 01/08/25 07:30
Sodium 139 mmol/L (135-145) 01/07/25 22:27
Potassium 4.0 mmol/L (3.5-5.1) 01/07/25 22:27
BUN 26 mg/dl (7-17) H 01/07/25 22:27
Glucose 102 mg/dl (70-99) H 01/07/25 22:27
Calcium 10.0 mg/dl (8.4-10.2) 01/07/25 22:27
Medications
-
Medications:
Generic Name Dose Route Start Last Admin
Trade Name Freq PRN Reason Stop Dose Admin
Acetaminophen 650 mg 01/08/25 05:34
Acetaminophen 325 Mg Tablet PO 02/05/25 05:33
Q4HPRN PRN
mild pain/PEDERSON/temp> 100.4F
Atorvastatin Calcium 20 mg 01/08/25 08:00
Atorvastatin (Lipitor) 20 Mg Tablet PO 02/05/25 07:59
DAILY SHIRLEY
Bisacodyl 10 mg 01/08/25 05:34
Bisacodyl 10 Mg Rectal Suppository RECTAL 02/05/25 05:33
[id number] PRN
constipation
Cyclosporine 1 drops 01/08/25 08:00
Cyclosporine 0.05% (Ophthalmic Emulsion) 10 Drop Droperette BOTH EYES 02/05/25 07:59
Q12 SHIRLEY
Diazepam 5 mg 01/08/25 05:34
Diazepam 10 Mg/2 Ml Inj IV 02/05/25 05:33
Q6HPRN PRN
agitation
Enoxaparin Sodium 40 mg 01/08/25 18:00
Enoxaparin Sodium 40 Mg/0.4 Ml Syringe SC 02/05/25 17:59
QPM SHIRLEY
Sodium Chloride 1,000 mls @ 75 mls/hr 01/08/25 05:34
Nss IV 01/08/25 18:53
[id number] SHIRLEY
Latanoprost 1 drop 01/08/25 22:00
Latanoprost 0.005% (Ophthalmic Solution) 2.5 Ml Bottle BOTH EYES 02/05/25 21:59
HS SHIRLEY
Polyethylene Glycol 17 grams 01/08/25 05:34
Polyethylene Glycol Powder 17 Grams Packet PO 02/05/25 05:33
DAILYPRN PRN
constipation
Senna/Docusate Sodium 1 tablet 01/08/25 05:34
Docusate W/Senna (Allyssa-Colace) Tablet PO 02/05/25 05:33
BIDPRN PRN
constipation
Sodium Chloride 0 flush 01/08/25 06:00
Sodium Chloride 0.9% (Flush) Syringe IV 02/05/25 05:59
PER PROTOCOL SHIRLEY
Home Medications
-
Home Medications
alprazolam 0.25 mg tablet (Xanax) 0.25 mg PO BIDPRN PRN anxiety 07/30/23
atorvastatin 20 mg tablet (Lipitor) 20 mg PO DAILY High Cholesterol 07/30/23
bimatoprost 0.01 % eye drops (Lumigan) 1 drp BOTH EYES HS Eye Condition 07/30/23
cyclosporine 0.05 % eye drops in a dropperette (Restasis) 1 drp BOTH EYES Q12H Eye Condition 07/30/23
estradiol 0.01% (0.1 mg/gram) vaginal cream (Estrace) 1 appful vaginal Q48H Hormonal Agent 07/30/23
gabapentin 300 mg capsule 600 mg PO NOON Pain 07/30/23
gabapentin 300 mg capsule 900 mg PO BID@0800,2000 Pain 07/30/23
[2025-01-08 08:09] LABS: Hematocrit 37.4 % (37.0-47.0); Hemoglobin 12.6 g/dL (12.0-16.0); Mean Corp Hgb Conc. 33.7 g/dL (33.0-37.0); Mean Corpuscular Volume 86.6 fL (81.0-99.0); Platelet Count 223 10^3/uL (130-400); Red Cell Dist. Width 11.9 % (11.5-14.5)
[2025-01-08 08:31] LABS: Blood Urea Nitrogen 18 mg/dl (7-17); Calcium 9.3 mg/dl (8.4-10.2); Carbon Dioxide 27 mmol/L (22-30); Chloride 106 mmol/L (98-107); Estimated Creatinine Clearance 38 ml/min; Glucose 85 mg/dl (70-99); Magnesium 1.7 mg/dl (1.6-2.3); Potassium 3.7 mmol/L (3.5-5.1); Sodium 137 mmol/L (135-145); eGFR > 60.00
[2025-01-08] MEDS: RESTASIS 0.05% OPHTHALMIC EMULSION 1 DROPS BOTH EYES (08:36)
[2025-01-08] MEDS: LIPITOR 20 MG PO (08:36)
[2025-01-08] MEDS: NSS 1000 IV (08:37)
[2025-01-08 09:02] LABS: TSH 2.48 uIU/ml (0.47-4.68)
[2025-01-08 09:21] LABS: Vitamin B12 514 pg/ml (239-931)
--- NOTE | 2025-01-08 12:41 | W.PN.HOSP.TC ---
Today's Communication/Plan
-
Assessment / Plan
Assessment / Plan
General: No Apparent Distress, Comfortable and Conversant
HEENT: NormoCephalic, Moist mucous membranes, Atraumatic
Respiratory: Clear and Non Labored Respirations
Cardiac: S1/S2 and Regular Rhythm; No Rub or Gallop
GI: Soft, Non Tender, Non Distended and Normal Bowel Sounds
Musculoskeletal: No Edema, no deformity
Skin: Warm and dry
: NO Borrero
Neuro: Awake, Alert, action tremor
Psych: Calm and cooperative
Ms. Chowdhury is an 84-year-old female with a medical history of essential tremor, polyneuropathy, generalized anxiety disorder, and osteoarthritis who presented due to acute worsening of her essential tremor. She was unable to unable to ambulate
due to the severity of her spastic movements. She was afebrile and normotensive in the ED. Lab work and CT brain were generally unremarkable. She was admitted for further evaluation and management.
Movement disorder:
- Possibly due to supratherapeutic levels of gabapentin which had been held for now
- MRI brain pending
- TSH and B12 within normal limits
- Appreciate neurology guidance
Generalized anxiety disorder:
- At home she uses Xanax 0.25 mg p.o. as needed
- Diazepam 5 mg IV currently ordered as needed
DVT prophylaxis: Lovenox
CODE STATUS: Full code
Total time spent on today's encounter was 53 minutes.
Anticipated Discharge: 24 - 48 hours
Subjective/Interval History
-
Date of Service: January 08, 2025
Patient was seen and examined at bedside this morning. Currently comfortable. She reports that her tremors have resolved to normal.
Objective Data
-
Labs:
Laboratory Results
01/08/25
07:26
WBC 7.2
Hgb 12.6
Hct 37.4
Plt Count 223
Sodium 137
Potassium 3.7
Chloride 106
Carbon Dioxide 27
BUN 18 H
Creatinine 0.8
Glucose 85
Calcium 9.3
Vital Signs:
Vital Signs
Temp Pulse Resp BP Pulse Ox
98.5 F 86 18 135/74 97
01/08/25 11:14 01/08/25 11:14 01/08/25 11:14 01/08/25 11:14 01/08/25 11:14
Review of Systems
-
History Source: Patient
All other systems: Reviewed and negative
Physical Exam
-
General: No Apparent Distress
[2025-01-08 15:40] LABS: Urine Character Cloudy (Clear)
[2025-01-08 15:51] LABS: Urine Squamous Cell 0-2 /LPF (Few)
[2025-01-08 15:52] LABS: Urine Red Blood Cell 0-2 /HPF (0-2); Urine White Cell 30-40 /HPF (0-5)
[2025-01-08] MEDS: LOVENOX 40 MG SC (17:28)
--- NOTE | 2025-01-08 21:30 | PTCARENOTE ---
Patient has been combative, aggressive and impulsive since prior to change of shift. Dayshift RN provided patient with dose of IV Valium with no change in patient presentation. Patient found in room with alarm sounding, IV unhooked per patient and
peripheral site partially out of her arm. Patient is unsteady, refusing to use call patel for assistance and provided education on patient safety while in the hospital. Patient becoming verbally abusive to staff and requesting to leave AMA stating
'my is coming to pick me up, I am out of here.' This RN call , Harshal, at [phone] to provide him with an update and to see if leaving AMA is what they are seeking. Patient's states 'She has been very agitated. Can't you
just sedate her tonight?' Reviewed hospital policy with and inquired if this is normal patient behavior at home. stated 'She is in the hospital, she is probably out of sorts. She is never like this at home, she doesn't do this at
home. We are waiting on MRI results. We won't be able to care for her at home like this.' Encouraged to come in to be with patient tonight if that would help to calm her down and comfort her. arrived, sat at bedside with patient for
a short period of time, and stated he was going home to be with the family dog. 'If she wants to refuse these things, she can. There is no sense in arguing with her.' stated he 'recommended' we get Benadryl ordered to help her sleep and to
make it to tomorrow so she can be discharged.
Notified AYNAA Hendricks of events since change of shift and of patient behavior. Patient is refusing IV, refusing ordered IVFs, refusing ordered medications. PAYROLL AUDITOR inquiring about positive THC in UDS -- states to this RN 'Well, I use marijuana, I
have a medical card. She probably uses some of my oils when she feels she needs to.' PAYROLL AUDITOR ordered IV Benadryl, but patient is now refusing. PAYROLL AUDITOR is encouraging patient and to speak with day team to discuss MRI results at length, is also
requesting a psych consult.
Bed alarm is intact and functioning appropriately, patient continuously setting off bed alarm and stumbling around the room. Patient states she is aware of her risks of falling by not using call patel and states 'Just get the hell out of my room and
leave me alone. We are done here, pantera. You can leave, we are done, leave me alone.' Charge nurse and PAYROLL AUDITOR aware of situation.
[2025-01-08] MEDS: RESTASIS 0.05% OPHTHALMIC EMULSION BOTH EYES (22:03)
--- NOTE | 2025-01-08 22:21 | PTCARENOTE ---
Patient is pacing around the room, hitting the sim, slamming the doors and yelling at staff. 'What are you going to do, beat me up? Are you proud of yourself? Your parents must be real proud of all of you. You should be real proud of yourselves.
You are all real creeps around here, what is wrong with all of you.' RESIDENTIAL SALES CONSULTANT aware of patient behavior and on unit with patient at this time. Patient on the phone with her at this time demanding he come pick her up. stating to patient
'No, I am at home right now in bed myself.' RESIDENTIAL SALES CONSULTANT on floor.
--- NOTE | 2025-01-08 23:08 | W.PN.UPDATE ---
Addendum entered and electronically signed by AYANA Ruelas 01/09/25 06:43:
Nursing reports this morning patient slept for a few hours. psychiatry consult placed and Dr. Efrain Mcneill Texted.
Addendum entered and electronically signed by AYANA Reulas 01/09/25 01:39:
Patient's telemetry and bed alarms removed due to agitation. She has pulled out several IV sites. She finally agreed to take her xanax and a dose of Neurontin (to avoid abrupt withdrawal issues since she has not received doses while here). I sat
with her a bit more while she was laying in bed and we talked again about our pets, children, grandchildren and husbands. She appeared sleepy so I wished her a good night and she asked me to keep in touch and we should go out sometime with our
spouses. Will ask Dr. Zuniga from psychiatry service to come see her this morning.
Original Note:
Update Note
Progress Note Update
Asked to come see patient who is on the phone with her screaming for him to come get her. I sat with her for about 1 half hour and just listened mostly. She is paranoid..becomes fixated on the latest issue. Not easily redirectable. Has
borderline personality tendencies playing staff against each other. Poor memory makes it difficult to be consistent.
[2025-01-09] MEDS: XANAX 0.25 MG PO (00:27)
[2025-01-09] MEDS: NEURONTIN 300 MG PO (00:27)
--- NOTE | 2025-01-09 03:51 | PTCARENOTE ---
pt refused night time meds and nursing assessment. Pt got out of bed continuously and verbally fought staff after being educated on safety measures. Pt ripped IV out and refused new IV placement, and refused to keep tele monitor on. This RN notified
SKINNER PELTS. SKINNER PELTS came to floor to see pt then placed orders to DC tele. Pt continued getting out of bed, SKINNER PELTS made aware then placed order to DC bed alarm and an order for a stat dose of
xanax and neurontin. Pt continued screaming at staff and refused meds. After some time pt requested the zanax and neurontin which were then given. Pt is now asleep. Will continue monitoring.
[2025-01-09 07:40] VITALS: BP 164/77
--- NOTE | 2025-01-09 08:56 | W.PN.NEURO.1 ---
Today's Communication / Plan
-
.
Subjective/Objective
Subjective Data
Date of Service: January 09, 2025
Neurology follow-up note.
24-hour events: Hypertensive in the morning up to 164/77, intermittently tachycardic last night, afebrile.
The patient reports poor sleep quality and is eager to go home.
When asked about THC use, the patient initially responded 'I hear of it, but I don't really know.'
The patient denies having headache, change in vision or dysuria.
Labs: UA positive for leukocyte esterase 3+, bacteria, negative for nitrates.
UA tox�positive for THC, negative for benzodiazepines(received 10 mg in ER)
Vitamin B12, TFTs�unremarkable
Brain MRI showed no acute abnormalities.
PMH: ET, DLP, polyneuropathy, UI, GLORIA, OA
PSH: Left TKR, Left eyelid, biopsy
SH: , former secretarial work; nonsmoker; no history of excessive alcohol use use; independent in ADLs
FH: - Father: History of tremor
- Mother: Developed dementia around age 78, son�tremor
All:PNC
ROS: General: Positive for poor sleep.
Genitourinary: Positive for incontinence. Negative for urinary frequency, urgency, and burning.
General: Well developed. In no acute distress. Looks younger than chronological age (thus cosmetic procedures)
Cardio: Regular rate and rhythm without murmur. Extremities are without cyanosis or edema.
Neuro:
Mental Status: Alert, oriented to name, location, person. Poor attention and comprehension.
Cranial Nerves: Pupils are equally round and reactive to light. EOMs full. Visual moreno full to confrontation. No ptosis. No nystagmus. Face symmetric. Impaired hearing AU. The palate elevated well. SCMs and traps 5/5. Tongue midline.
No dysarthria.
Motor: Normal bulk and tone. No pronator or arm drift. Strength 5/5 throughout. No clonus.
Coordination: Symmetric action hand tremor. No dysmetria. No myoclonus
Gait: deferred
Assessment and Plan:
I. Essential tremor
II. Encephalopathy, likely mixed
III. Family history of dementia
- Fall precautions
- Please repeat urine tox
- Continue home dose of gabapentin
- Outpatient neuropsychological evaluation
- Outpatient neurology follow-up with Dr. James.
I personally reviewed all radiology and labs along with past medical records pertinent to current medical problems. Total time spent in patient care is 35 minutes.
Thank you for allowing us to participate in the care of this patient. We will continue to follow. Please do not hesitate to contact us with any questions or concerns.
Objective Data
Vital Signs
Temp Pulse Resp BP Pulse Ox
36.9 C 83 16 164/77 98
01/09/25 07:40 01/09/25 07:40 01/09/25 07:40 01/09/25 07:40 01/09/25 07:40
Lab Results
01/08/25 07:26
01/08/25 07:26
Sodium 137 mmol/L (135-145) 01/08/25 07:26
Potassium 3.7 mmol/L (3.5-5.1) 01/08/25 07:26
BUN 18 mg/dl (7-17) H 01/08/25 07:26
Glucose 85 mg/dl (70-99) 01/08/25 07:26
Calcium 9.3 mg/dl (8.4-10.2) 01/08/25 07:26
Vitamin B12 514 pg/ml (239-931) 01/08/25 07:26
Ur Buprenorphine Negative (Negative) 01/08/25 02:47
Patient Allergies
Penicillins Allergy (Verified 01/07/25 22:07)
rash/burning
Vital Signs and Labs
-
Vital Signs and Labs:
Vital Signs
Temp Pulse Resp BP Pulse Ox
36.9 C 83 16 164/77 98
01/09/25 07:40 01/09/25 07:40 01/09/25 07:40 01/09/25 07:40 01/09/25 07:40
Lab Results
01/08/25 07:26
01/08/25 07:26
Sodium 137 mmol/L (135-145) 01/08/25 07:26
Potassium 3.7 mmol/L (3.5-5.1) 01/08/25 07:26
BUN 18 mg/dl (7-17) H 01/08/25 07:26
Glucose 85 mg/dl (70-99) 01/08/25 07:26
Calcium 9.3 mg/dl (8.4-10.2) 01/08/25 07:26
Vitamin B12 514 pg/ml (579-931) 01/08/25 07:26
Ur Buprenorphine Negative (Negative) 01/08/25 02:47
Medications
-
Medications:
Generic Name Dose Route Start Last Admin
Trade Name Freq PRN Reason Stop Dose Admin
Acetaminophen 650 mg 01/08/25 05:34
Acetaminophen 325 Mg Tablet PO 02/05/25 05:33
Q4HPRN PRN
mild pain/PEDERSON/temp> 100.4F
Atorvastatin Calcium 20 mg 01/08/25 08:00 01/08/25 08:36
Atorvastatin (Lipitor) 20 Mg Tablet PO 02/05/25 07:59 20 mg
DAILY SHIRLEY Administration
Bisacodyl 10 mg 01/08/25 05:34
Bisacodyl 10 Mg Rectal Suppository RECTAL 02/05/25 05:33
[id number] PRN
constipation
Ceftriaxone Sodium 1,000 mg 01/09/25 10:00
Ceftriaxone 1000 Mg / 10 Ml Vial IV 01/12/25 09:59
Q24H SHIRLEY
Cyclosporine 1 drops 01/08/25 08:00 01/08/25 22:03
Cyclosporine 0.05% (Ophthalmic Emulsion) 10 Drop Droperette BOTH EYES 02/05/25 07:59 Not Given
Q12 SHIRLEY
Diazepam 5 mg 01/08/25 05:34 01/08/25 18:42
Diazepam 10 Mg/2 Ml Inj IV 02/05/25 05:33 5 mg
Q6HPRN PRN Administration
agitation
Diphenhydramine HCl 25 mg 01/08/25 21:12
Diphenhydramine 50 Mg/Ml 1 Ml Vial IV 02/05/25 21:11
HSPRN PRN
insomnia
Enoxaparin Sodium 40 mg 01/08/25 18:00 01/08/25 17:28
Enoxaparin Sodium 40 Mg/0.4 Ml Syringe SC 02/05/25 17:59 40 mg
QPM SHIRLEY Administration
Latanoprost 1 drop 01/08/25 22:00 01/08/25 22:03
Latanoprost 0.005% (Ophthalmic Solution) 2.5 Ml Bottle BOTH EYES 02/05/25 21:59 Not Given
HS SHIRLEY
Polyethylene Glycol 17 grams 01/08/25 05:34
Polyethylene Glycol Powder 17 Grams Packet PO 02/05/25 05:33
DAILYPRN PRN
constipation
Senna/Docusate Sodium 1 tablet 01/08/25 05:34
Docusate W/Senna (Allyssa-Colace) Tablet PO 02/05/25 05:33
BIDPRN PRN
constipation
Sodium Chloride 0 flush 01/08/25 06:00
Sodium Chloride 0.9% (Flush) Syringe IV 02/05/25 05:59
PER PROTOCOL SHIRLEY
Sterile Water 10 ml 01/09/25 10:00
Sterile Water For Injection 10 Ml Vial IV 02/06/25 09:59
Q24H SHIRLEY
Home Medications
-
Home Medications
alprazolam 0.25 mg tablet (Xanax) 0.25 mg PO BIDPRN PRN anxiety 07/30/23
atorvastatin 20 mg tablet (Lipitor) 20 mg PO DAILY High Cholesterol 07/30/23
bimatoprost 0.01 % eye drops (Lumigan) 1 drp BOTH EYES HS Eye Condition 07/30/23
cyclosporine 0.05 % eye drops in a dropperette (Restasis) 1 drp BOTH EYES Q12H Eye Condition 07/30/23
estradiol 0.01% (0.1 mg/gram) vaginal cream (Estrace) 1 appful vaginal Q48H Hormonal Agent 07/30/23
gabapentin 300 mg capsule 600 mg PO NOON Pain 07/30/23
gabapentin 300 mg capsule 900 mg PO BID@0800,2000 Pain 07/30/23
[2025-01-09] MEDS: RESTASIS 0.05% OPHTHALMIC EMULSION BOTH EYES (09:43)
[2025-01-09] MEDS: LIPITOR PO (09:43)
--- NOTE | 2025-01-09 10:29 | W.DCSUMMARY ---
Discharge Summary
Discharge Data
Date of Admission: 01/08/25
Date of Discharge: 01/09/25
Total time spent discharging patient (in min): 48
-
Pending Results: No
Hospital Course
Ms. Chowdhury is an 84-year-old female with a medical history of essential tremor, polyneuropathy, generalized anxiety disorder, and osteoarthritis who presented due to acute worsening of her essential tremor. She was unable to unable to ambulate
due to the severity of her spastic movements. She was afebrile and normotensive in the ED. Lab work and CT brain were generally unremarkable. She was admitted for further evaluation and management.
Her tremors improved to her baseline. Her urinalysis was positive for pyuria and bacteriuria. She was started on antibiotics for a urinary tract infection. Her toxicology screen was positive for THC but negative for benzodiazepines (which is
unusual because she received 10 mg of IV Valium in the ED and uses Xanax at home as needed, she denies THC use). Her lab work was otherwise within normal limits and her brain MRI was unremarkable. She will be continued on her home gabapentin
regimen. She will need to follow-up with her primary neurologist, Dr. James, for further management. She will be given a prescription for oral antibiotics to complete a total 3-day course for her UTI. At the time of hospital discharge she was
medically stable.
General: No Apparent Distress, Comfortable and Conversant
HEENT: NormoCephalic, Moist mucous membranes, Atraumatic
Respiratory: Equal chest rise, Non Labored Respirations
Cardiac: Regular Rhythm; rate controlled around 80
GI: Non Distended and Normal Bowel Sounds
Musculoskeletal: No Edema, no deformity
: NO Borrero
Neuro: Awake, Alert, mild resting tremor
Psych: Calm and cooperative
Discharge Plan
-
Patient Disposition: Home (Routine Discharge)
Discharge Diagnosis/Procedures: Acute on chronic movement disorder, UTI
Activity Restrictions/Additional Instructions:
Ms. Chowdhury is an 84-year-old female with a medical history of essential tremor, polyneuropathy, generalized anxiety disorder, and osteoarthritis who presented due to acute worsening of her essential tremor. She was unable to unable to ambulate
due to the severity of her spastic movements. She was afebrile and normotensive in the ED. Lab work and CT brain were generally unremarkable. She was admitted for further evaluation and management.
Her tremors improved to her baseline. Her urinalysis was positive for pyuria and bacteriuria. She was started on antibiotics for a urinary tract infection. Her toxicology screen was positive for THC but negative for benzodiazepines (which is
unusual because she received 10 mg of IV Valium in the ED and uses Xanax at home as needed, she denies THC use). Her lab work was otherwise within normal limits and her brain MRI was unremarkable. She will be continued on her home gabapentin
regimen. She will need to follow-up with her primary neurologist, Dr. James, for further management. She will be given a prescription for oral antibiotics to complete a total 3-day course for her UTI. At the time of hospital discharge she was
medically stable.
Referrals:
Bindu Marie DO [Family Provider, Family Practice]
Prescriptions:
New
cefdinir 300 mg capsule
300 mg PO BID 3 Days Qty: 6 0RF
Continued
atorvastatin [Lipitor] 20 mg Tablet
20 mg PO DAILY
alprazolam [Xanax] 0.25 mg Tablet
0.25 mg PO BIDPRN PRN (Reason: anxiety)
gabapentin 300 mg Capsule
900 mg PO BID@0800,2000
gabapentin 300 mg Capsule
600 mg PO NOON
estradiol [Estrace] 0.01 % (0.1 mg/gram) Cream
1 appful VAGINAL Q48H
cyclosporine [Restasis] 0.05 % Dropperette
1 drp BOTH EYES Q12H
Lumigan 0.01 % Drops
1 drp BOTH EYES HS
Discharge Orders:
Discharge Patient (As Directed); Ordered 01/09/25
Ordered By: James Montero
Discharge Date and Time
Print Language: HAITIAN
--- NOTE | 2025-01-09 11:00 | W.PN.UPDATE ---
Update Note
Progress Note Update
Psychiatric consultation dictated.
Patient at this time is very friendly and cooperative. She admits to anxiety but apparently the 0.25 mg of Xanax on prn basis helps; she is aware of possible side effects regarding falls, incoordination and cognition but it is a low dose and she
states she takes in infrequently. Denies depression or suicidal thoughts.
She does have very poor immediate recalll and states she does forget more than in the past .
Patient being discharged today; should anxiety get worse OP psychiatric follow up would be recommended.
--- NOTE | 2025-01-09 11:25 | CM ---
Patient lives with her Harshal in a 2 story home with 3 step to enter and 12 steps to bed room . She is independent in driving and all activities of daily living.Offered VN she declined. No adaptive devices.
discharge today
OBSERVATION status - LEIGH FORM EXPLAINED & IN CHART
No SNF/VN hx
Pharmacy [facility]
PCP Dr Mays
PLAN Home no needs
to transport
--- NOTE | 2025-01-10 11:29 | W.RAPID.EEG ---
Rapid EEG
-
Procedure Date: 01/08/25
Results:
Findings:
This recording is artifact-free for a portion of the session. No electrographic seizures, epileptiform discharges, or focal slowing are identified.
Clinical Correlation/Impression:
There is no evidence of electrographic seizures, epileptiform activity, or focal abnormalities in the EEG.
Disclaimer: EEG findings should be interpreted in the context of clinical history and other tests. A normal EEG does not rule out epilepsy or other conditions, and an abnormal EEG is not diagnostic on its own. Technical factors may affect
interpretation. Clinical context is required.
Patient Demographics:
Patient Name: TY RAMOS Date of : 1940
Location: Sex: Age: 84
Primary Indication: Other, Other: TREMORS
Order Details:
Site: [facility]
Recording Information:
Diagnostic Recording Time: 00:38:44 (39 minutes)
Recording 1:
Start Time: Jan 08, 2025 00:46 AM End Time: Jan 08, 2025 01:25 AM
Recording Technique: This EEG was obtained using a 10 lead, 8 channel system positioned circumferentially without any parasagittal coverage (rapid EEG).Computer selected EEG is reviewed as well as background features and all clinically significant
events. Clarity algorithm utilized and implemented to provide analysis of underlying activity and seizure detection used to facilitate reading. ICD-10 Code [id number]
Clinical History: TY RAMOS is a 84 year old Other, Other: TREMORS patient undergoing EEG to screen for non-convulsive status epilepticus.
== END 2025-01-09 11:28 | disposition home or self-care (01) ==
LOC: 3 WEST ACU 03:04
PROVIDERS: Psychiatry & Neurology Neurology; ADMITTING PHYSICIAN Internal Medicine; ATTENDING PHYSICIAN Internal Medicine; CONSULT PHYSICIAN Psychiatry & Neurology Neurology; CONSULT PHYSICIAN Psychiatry & Neurology Psychiatry; EMERGENCY PHYSICIAN Emergency Medicine; FAMILY PHYSICIAN Family Medicine
PROC: XX20X89 Monitoring of Brain Electrical Activity, Computer-aided Detection and Notification, New Technology Group 9 (ICD-10-PCS; 2025-01-08)
DX: G25.3 Myoclonus (principal); N39.0 Urinary tract infection, site not specified; F41.1 Generalized anxiety disorder; E78.5 Hyperlipidemia, unspecified; I10 Essential (primary) hypertension; R41.89 Other symptoms and signs involving cognitive functions and awareness; G25.0 Essential tremor; M19.90 Unspecified osteoarthritis, unspecified site; R32 Unspecified urinary incontinence; Z79.899 Other long term (current) drug therapy
CPT/HCPCS: 70450; 70551; 80048; 80053; 80306; 81003; 81015; 82140; 82550; 82607; 83735; 84443; 85025; 85027; 87077; 87086; 87186; 96374; 96376; 99285; G0378